=== PATIENT | female | born 1985 | race Two or more races ===

== ENCOUNTER 2022-06-12 20:40 | Emergency (ER) | payer OTHER ==
[~2022-06-12] VITALS: Ht 157.5 cm; Wt 60.8 kg
[2022-06-12] MEDS ORDERED: ONDANSETRON HCL/PF 4 MG/2 ML VIAL ONE (20:59)
[2022-06-12] MEDS ORDERED: IV NS 0.9% 1,000 ML BAG IV ONE (21:00)
[2022-06-12] MEDS ORDERED: ONDANSETRON HCL/PF - ER 4 MG/2 ML VIAL IV ONE (21:00)
--- NOTE | 2022-06-12 21:07 | NUR ---
BLOOD COLLECTED AND SENT TO LAB
--- NOTE | 2022-06-12 21:07 | NUR ---
[facility] [phone]
--- NOTE | 2022-06-12 21:26 | NUR ---
sister in law [phone]
[2022-06-12 21:43] VITALS: BP 98/70
--- NOTE | 2022-06-12 21:43 | NUR ---
Patient discharged to home in stable condition. Written and verbal after care instructions given. Patient verbalizes understanding of instruction.
[2022-06-12 21:50] LABS: CALCIUM, SERUM 8.8 mg/dL (8.5-10.1)
== END 2022-06-12 21:45 | disposition home or self-care (01) ==
LOC: ER 20:42
DX: R11.0 Nausea (principal); T40.711A Poisoning by cannabis, accidental (unintentional), initial encounter; F41.9 Anxiety disorder, unspecified; E10.8 Type 1 diabetes mellitus with unspecified complications; F32.A Depression, unspecified; Y92.89 Other specified places as the place of occurrence of the external cause
CPT/HCPCS: 99283; 96374; 96361; 80048; 36415; J2405; J7030